=== PATIENT | male | born 1950 | race Caucasian/White ===

== ENCOUNTER → 2020-03-11 10:13 | Outpatient (CLI) | payer OTHER, MEDICARE, SELFPAY ==
--- NOTE | 2020-03-11 10:35 | MRI_ITS ---
STUDY: MRI LEFT SHOULDER REASON FOR EXAM: Pain, biceps tendon tear from lifting injury 03/01/2020. TECHNIQUE: Standardized fat and water weighted pulse sequences were obtained in all 3 orthogonal planes. COMPARISON: None. FINDINGS: There is a full-thickness tear of the supraspinatus tendon (T2 coronal images 8-11) measuring approximately 2.6 x 1.9 cm (length x width). There is mild infraspinatus tendinosis (T2 coronal images 16, 17) without discrete tendon tear. There is mild subscapularis tendinosis (proton density axial images 12, 13) without discrete tendon tear. Normal teres minor tendon. Normal supraspinatus muscle. Normal infraspinatus muscle. Normal subscapularis muscle. Normal teres minor muscle. There is a small glenohumeral joint effusion. Normal humeral head and visualized proximal humerus. There is a retracted tear of the long biceps tendon. Normal labrum. Normal capsulo- ligamentous complex. There is acromioclavicular arthrosis with hypertrophic changes effacing the subacromial fat (T2 sagittal image 7). There is a Type II morphology (curved), with a neutral orientation. There is a small volume of subacromial-subdeltoid bursal fluid. There is thickening of the coracoacromial ligament (T2 sagittal image 9). Normal deltoid muscle. Normal trapezius muscle. MRI/Upper Ext Joint Only(Routine) IMPRESSION: Full-thickness tear of the supraspinatus tendon. Mild infraspinatus and subscapularis tendinosis. Tear of the long biceps tendon. Acromioclavicular arthrosis. Thickening of the coracoacromial ligament. Glenohumeral joint fluid communicating with the subacromial-subdeltoid bursa. Electronically Signed: Rosendo Leonardo MD at 13:53 EDT Tel , Service support ,
--- NOTE | 2020-03-11 10:35 | MRI_ITS ---
STUDY: MRI UPPER EXTREMITY LEFT HUMERUS WITHOUT CONTRAST REASON FOR EXAM: Pain, biceps tendon tear from lifting injury 03/01/2028. TECHNIQUE: Standardized fat and water weighted pulse sequences were obtained in all 3 orthogonal planes. COMPARISON: None. FINDINGS: There is very mild edema in the lateral subcutis adipose space. There is no demonstrated solid, cystic, or lipomatous mass within the subcutaneous adipose space. There is a tear of the long biceps tendon retracted to the level of the surgical neck of the humerus (inversion recovery coronal image 10) with fluid adjacent to the biceps musculotendinous junction (inversion recovery axial images 22-24). Normal visualized neurovascular bundles. Normal visualized humerus. MRI/Upper Ext/No Jt/ wo IMPRESSION: Retracted tear of the long biceps tendon. Electronically Signed: Rosendo Leonardo MD at 13:53 EDT Tel , Service support ,
== END ==
PROVIDERS: PCP Internal Medicine; Referring Provider Family Medicine; Visit Provider Family Medicine
DX: S46.212A Strain of muscle, fascia and tendon of other parts of biceps, left arm, initial encounter (principal); X50.9XXA Other and unspecified overexertion or strenuous movements or postures, initial encounter
CPT/HCPCS: 73218; 73221

== ENCOUNTER 2023-11-27 11:00 | Outpatient (RCR) | payer MEDICARE, SELFPAY ==
--- NOTE | 2023-11-06 15:50 | HP.PTEVAL_ITS ---
Patient's Visit Information Visit Information Visit Information: ROBB LEWIS is a 73 year old M referred to Physical Therapy by Dr. Fer Barboza DO with a diagnosis of R hip OA. Date of Evaluation: 11/06/23 Physical Therapist: Holden Grajeda, DPT, OCS, CSCS Visit Plan Frequency: 2x /Week Duration: 4-6 Weeks Plan: 2x/week for 3-6 weeks for(doing quad and HS stretch via HEP to start) 1. manual leg pull and R hip joint belt mobs each session.Try to get more extension adn IR. 2. teach gym and home based hip strength and stabs and work to I. Montior management of R hip stiffness. Subjective Subjective: R hip is bone on bone via x ray. Gets painful every now and then. Pain is lateral R hip. 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 Walks the dog a mile at a time and feels better as he walks. Activities are effected in that he has a recumbent bike that he avoids. Going up the stairs to eat is hard to move. Sleep is OK but stiff and sore in the morning then it works out pretty quick. Hobbies include riding bike but not lately, bought an ebike. Does push ups 81 without stopping. Stretches HS every morning. Basic ADLs are fine, stiff in am. Pain R hip: Pain Intensity (Out of 10): 0 Pain Intensity Range: 0 and 3 Objective Objective: Walks into PT I with good balance and slight R antalgia lacking extension at end of stance. Trasnfer chair and bed I. Steps are slightly painful using R. + R scour adn + DANIEL AROM R hip neutral IR, 40 er, vs L 15 ir and 55 er. flexion R 100 and L 110. extension to neutral R ext and 5 L extension. tight in psoas B, quad B and HS B at -30 90/90 test. strength abduction R 3+ and L 3+, extension 3 R and 3+ L, flexion 4- B knee strength 4+ B, hip rotations 3+ B. Not alot of pain with resisted testing. 2/3 reflexes patella and achilles Sensation WNL to gross light touch in B LE. Balance/Special Test Scores Functional Gait Assessment Score: 28 % Disability: 6.6700 Lower Extremity Functional Score: 55 Goals Goal 1:: I appropriate gym/home based OA exercise for stretching ind strengthening hips. knees core. Goal Time Frame: 4-6 Weeks Goal 2:: Pain and stiffness upon standing in R hip 50% better 1/10 at worst Goal Time Frame: 4-6 Weeks Goal 3:: Walk without antalgia in gait Goal Time Frame: 4-6 Weeks Rehabilitation Potential Physical Therapy Diagnosis: R hip stiffness and tightness and weakness effecting comfortable function Rehabilitation Potential: Fair Anticipated Interventions Patient/Client Instruction: Educate patient on: Condition For the Purpose of:: To decrease pain, To decrease swelling/inflammation, To improve muscle performance and motor function, To increase tolerance to activity/condition/position, To improve ability of physical actions for home/community/work/leisure and To improve gait and locomotor functions Therapeutic Exercise to Include: Strength training, Flexibilty training, Gait and locomotor training, Passive ROM and Active ROM For the Purpose of:: To decrease pain, To decrease swelling/inflammation, To improve muscle performance and motor function, To increase tolerance to activity/condition/position, To improve ability of physical actions for home/community/work/leisure and To improve gait and locomotor functions Manual Therapy Techniques to Include: Mobilization, Passive ROM and Soft tissue mobilization For the Purpose of:: To increase ROM Thermo therapy (hot pack): Yes For the Purpose of:: To improve nutrient delivery to tissue Text: Thank you for the opportunity to evaluate your patient. For Medicare and Medicare HMO plans, please review the plan of care and approve it. It will need to be FAXED BACK to us at [phone] for Medicare purposes. For Medicare only, by signing this I certify the plan of care. Please let me know if there are questions or concerns regarding this plan of care. Physician Signature: _Date:
--- NOTE | 2023-11-27 11:23 | HP.PTDCSUM_ITS ---
Discharge Summary D/C summary: It has been my pleasure to treat ROBB LEWIS referred by Dr. Fer Barboza DO, with the diagnosis of R hip OA for a total of 6 visit(s). Discharge Date: 11/27/23 Please see the following information for a summary of their discharge status. Subjective Subjective: Getting better,. R leg is just fine. L shoulder is bad. Saw shoulder doctor and will take meds for it mexical for shoulder. No pain in the hip lately. Sleeping OK. Activities: normal with hip. Getting off bus without a problem. Pain R hip: Pain Intensity (Out of 10): 0 Overall Improvement % Improvement: 100 Objective Objective/Function: Walks without antalgia and gets up from chair walking wi thout difficulty. Steps reciprocally without rail Goals Goal 1:: I appropriate gym/home based OA exercise for stretching ind strengthening hips. knees core. Goal Progress: Goal Met Goal 2:: Pain and stiffness upon standing in R hip 50% better 1/10 at worst Goal Progress: Goal Met Goal 3:: Walk without antalgia in gait Goal Progress: Goal Met Plan Plan: d/c to gym program. D/C Information Discharge Comments: Will do I in gym d/c sentence: If there are questions or concerns regarding this patient's physical therapy, please feel free to call me at [phone]. Thank you for the referral of this patient. Sincerely, Holden Grajeda, DPT, OCS, CSCS Balance/Gait/Functional tests Balance/Special Test Scores Functional Gait Assessment Score: 28 % Disability: 6.6700 Lower Extremity Functional Score: 59 Improvement % Improvement: 100
== END 2023-11-27 14:57 | disposition home or self-care (01) ==
LOC: PT 11:00
PROVIDERS: PCP Internal Medicine; Referring Provider Orthopaedic Surgery; Visit Provider Orthopaedic Surgery
DX: M16.11 Unilateral primary osteoarthritis, right hip (principal)
CPT/HCPCS: 97110; 97161; 97164

== ENCOUNTER → 2024-06-10 | Outpatient (CLI) | payer MEDICARE, SELFPAY ==
--- NOTE | 2024-06-10 07:47 | CT_ITS ---
STUDY: CT MAXILLOFACIAL SINUSES REASON FOR EXAM: Male, 74 years old. SINUSITIS RADIATION DOSAGE (If Supplied By Facility): CTDIvol = ( 33.06 ) mGy, DLP = ( 866.91 ) mGycm TECHNIQUE: The patient was scanned in a multi detector CT scanner. High resolution axial imaging was performed without the administration of intravenous contrast material. Sagittal and coronal images were reconstructed. Individualized dose optimization techniques were used for this CT. COMPARISON: None. FINDINGS: FRONTAL SINUSES: Normal aeration, without mucosal inflammatory disease. ETHMOIDAL SINUSES: Normal aeration, without mucosal inflammatory disease. MAXILLARY SINUSES: Mucosal thickening of the maxillary sinus bilaterally worse on the left side. SPHENOIDAL SINUSES: Normal aeration, without mucosal inflammatory disease. There is compromise of the ostiomeatal complex bilaterally due to the because of hypertrophy of the maxillary sinuses. Normal bilateral middle turbinates. There is hypertrophy of the right inferior nasal turbinate. There is a left sided nasal septal deviation, but without a nasal septal spur. There is patency of the bilateral nasal airways. The visualized osseous structures are normal. The visualized bilateral orbital contents are normal. CT/Sinus/Facial Bone IMPRESSION: Mucosal thickening in the maxillary sinuses bilaterally worse on the left side with compromise of the ostiomeatal complexes due to mucosal hypertrophy. Nasal septal deviation towards the left side of the midline. Electronically Signed: [place] MD at 14:38 EDT ,
== END | disposition home or self-care (01) ==
LOC: CT 07:45
PROVIDERS: PCP Internal Medicine; Referring Provider Otolaryngology; Visit Provider Otolaryngology
DX: J32.9 Chronic sinusitis, unspecified (principal)
CPT/HCPCS: 70486

== ENCOUNTER 2024-11-25 10:54 | Outpatient (RCR) | payer OTHER, SELFPAY | END 2024-12-04 23:59 | LOC: NS 10:54 | PROVIDERS: PCP Internal Medicine; Referring Provider Orthopaedic Surgery; Visit Provider Orthopaedic Surgery | DX: Z71.3 Dietary counseling and surveillance (principal); E11.9 Type 2 diabetes mellitus without complications; M16.11 Unilateral primary osteoarthritis, right hip; M51.369 Other intervertebral disc degeneration, lumbar region without mention of lumbar back pain or lower extremity pain | CPT/HCPCS: 97802 ==